=== PATIENT | female | born 1960 | race Caucasian/White ===

== ENCOUNTER 2018-06-20 12:28 | Emergency (ER) | payer BC ==
[2018-06-20 13:31] LABS: BASOPHILS % (AUTO) 0.3 %; EOSINOPHILS % (AUTO) 0.2 %; HGB - HEMOGLOBIN 13.2 g/dL (12.0-16.0); LYMPHOCYTES # (AUTO) 0.5 10^3/uL (1.5-3.5); LYMPHOCYTES % (AUTO) 4.5 %; MEAN CORPUSCULAR HEMOGLOBIN 35.4 pg (27.0-31.0); MEAN CORPUSCULAR HGB CONC 35.1 g/dL (32.0-36.0); MEAN CORPUSCULAR VOLUME 100.8 fL (81.0-99.0); MEAN PLATELET VOLUME 8.2 fL (7.9-10.8); MONOCYTES # (AUTO) 0.9 10^3/uL (0.0-1.0); MONOCYTES % (AUTO) 7.7 %; NEUTROPHILS # (AUTO) 10.3 10^3/uL (1.5-6.6); NEUTROPHILS % (AUTO) 87.3 %; PLT - PLATELET COUNT 164 10^3/uL (130-450); RED BLOOD COUNT 3.73 10^6/uL (4.20-5.40); RED CELL DISTRIBUTION WIDTH 13.2 % (12.0-15.0); WHITE BLOOD COUNT 11.8 x10^3/uL (4.8-10.8)
[2018-06-20 13:38] LABS: ALBUMIN 4.2 g/dL (3.2-5.5); ALBUMIN/GLOBULIN RATIO 1.3 (1.0-2.2); BILIRUBIN,TOTAL 0.8 mg/dL (0.2-1.0); CALCIUM 8.8 mg/dL (8.5-10.3); CREATININE 0.9 mg/dL (0.4-1.0); TOTAL PROTEIN 7.4 g/dL (6.7-8.2)
[2018-06-20] MEDS ORDERED: MORPHINE 10 MG/ML VIAL IVP STA (13:59)
[2018-06-20] MEDS ORDERED: ONDANSETRON 4 MG/2 ML VIAL IVP STA (13:59)
[2018-06-20] MEDS ORDERED: SODIUM CHLORIDE 0.9% 1,000 ML IV ONE (13:59)
--- NOTE | 2018-06-20 14:02 | ED Physician Documentation ---
PD HPI ABD PAIN - Stated complaint Stated Complaint: RECTAL BLEED/NAUSEA - Chief complaint Chief Complaint: Abd Pain - History obtained from History obtained from: Patient - History of Present Illness Timing - onset: Last night (Healthy 58-year-old woman who is never had a colonoscopy who developed lower abdominal pain with hematochezia and 2 episodes of nonbloody vomit last night. She has had a moderate to large amount of blood and clots. No history of GI bleeding or hemorrhoids. She has had chills but no measured fevers.) Review of Systems Ten Systems: 10 systems reviewed and negative Constitutional: reports: Chills. denies: Fever Cardiac: denies: Chest pain / pressure, Palpitations Respiratory: denies: Dyspnea, Cough GI: reports: Abdominal Pain, Nausea, Vomiting, Bloody / black stool PD PAST MEDICAL HISTORY - Past Medical History Past Medical History: No - Past Surgical History General: Appendectomy Ortho: Spine surgery /[employer]: Endometrial ablation HEENT: Tonsil/Adenoidectomy - Present Medications Home Medications: Ambulatory Orders Medication Instructions Recorded Confirmed Ciprofloxacin HCl [Cipro] 500 mg PO BID #14 tablet 06/20/18 Hydrocodone/Acetaminophen 1 - 2 each PO Q6H PRN #14 tablet 06/20/18 [Hydrocodon-Acetaminophen 5-325] Metronidazole [Flagyl] 500 mg PO TID #20 tablet 06/20/18 Multivit,Calc,Mins/Folic Acid 1 tab PO DAILY 06/20/18 06/20/18 [One-A-Day Proactive 65 Plus Tb] Promethazine [Phenergan] 25 mg PO Q6H PRN #10 tab 06/20/18 - Allergies Allergies/Adverse Reactions: Allergies Allergy/AdvReac Type Severity Reaction Status Date / Time No Known Drug Allergies Allergy Verified 06/20/18 12:37 - Social History Does the pt smoke?: No Smoking Status: Never smoker Does the pt drink ETOH?: Yes Does the pt have substance abuse?: No - Family History Family history: reports: Non contributory - Immunizations Immunizations are current?: Yes PD ED PE NORMAL - Vitals Vital signs reviewed: Yes - General General: Alert and oriented X 3, No acute distress - HEENT HEENT: PERRL, Pharynx benign - Neck Neck: Supple, no meningeal sign, No bony TTP - Cardiac Cardiac: RRR, No murmur - Respiratory Respiratory: No respiratory distress, Clear bilaterally - Abdomen Abdomen: Other (Mild left lower quadrant tenderness with hyperactive bowel tones and no surgical signs) - Rectal Rectal: Other (Kira Petty RN, No stool in the vault, no external hemorrhoids, she does have internal hemorrhoids without gross blood.) - Back Back: No CVA TTP, No spinal TTP - Derm Derm: Normal color, Warm and dry - Extremities Extremities: No edema, No calf tenderness / cord - Neuro Neuro: Alert and oriented X 3, Normal speech Results - Vitals Vitals: Vital Signs - 24 hr 06/20/18 12:32 Temperature 36.7 C Heart Rate 82 Respiratory 18 Rate Blood Pressure 135/79 H O2 Saturation 98 Oxygen O2 Source Room air - Labs Labs: Laboratory Tests 06/20/18 06/20/18 13:15 13:15 WBC 11.8 H RBC 3.73 L Hgb 13.2 Hct 37.6 MCV 100.8 H MCH 35.4 H MCHC 35.1 RDW 13.2 Plt Count 164 MPV 8.2 Neut # (Auto) 10.3 H Lymph # (Auto) 0.5 L [place] # (Auto) 0.9 Eos # (Auto) 0.0 Baso # (Auto) 0.0 Absolute Nucleated RBC 0.00 Nucleated RBC % 0.0 Sodium 134 L Potassium 3.7 Chloride 102 Carbon Dioxide 24 Anion Gap 8.0 BUN 22 H Creatinine 0.9 Estimated GFR (MDRD) 64 L Glucose 149 H Calcium 8.8 Total Bilirubin 0.8 AST 32 ALT 26 Alkaline Phosphatase 80 Total Protein 7.4 Albumin 4.2 Globulin 3.2 Albumin/Globulin Ratio 1.3 Lipase 24 - Rads (name of study) ct a/p Radiology: EMP read contemporaneously (Colitis starting at the splenic flexure down to the sigmoid colon.) PD MEDICAL DECISION MAKING - ED course ED course: 58-year-old woman presents with left lower abdominal pain and hematochezia likely colitis or diverticulitis. Colitis was proven on CT and she was treated with Cipro and Flagyl. Her labs were reassuring. - Sepsis Event Vital Signs: Vital Signs - 24 hr 06/20/18 12:32 Temperature 36.7 C Heart Rate 82 Respiratory 18 Rate Blood Pressure 135/79 H O2 Saturation 98 Oxygen O2 Source Room air Departure - Departure Disposition: 01 Home, Self Care Clinical Impression: Colitis, Hematochezia Condition: Good Record reviewed to determine appropriate education?: Yes Instructions: ED Hematochezia Stable Prescriptions: Ciprofloxacin HCl [Cipro] 500 mg PO BID #14 tablet Hydrocodone/Acetaminophen [Hydrocodon-Acetaminophen 5-325] 1 - 2 each PO Q6H PRN #14 tablet PRN Reason: pain Metronidazole [Flagyl] 500 mg PO TID #20 tablet Promethazine [Phenergan] 25 mg PO Q6H PRN #10 tab PRN Reason: Nausea / Vomiting Comments: As discussed, your CT shows colitis from the splenic flexure down to the sigmoid colon without vascular abnormalities. You had a white blood cell count of 11.8, hemoglobin 13.2, hematocrit 37.6, platelet count of 164. Her chemistries were basically normal with the exception of very mild hyponatremia at 134 and a BUN of 22. Your creatinine is normal at 0.9 and your electrolytes and liver function were normal. Your glucose was slightly high at 149, likely from illness. Follow-up with your primary care physician. As discussed she will need a colonoscopy in 6 weeks or so for follow-up.
[2018-06-20] MEDS ORDERED: IOPAMIDOL-300 100 ML VIAL ONE (14:04)
--- NOTE | 2018-06-20 15:03 | CT Report ---
Reason: IV only, LLQ pain and hematochezia Procedure Date: 06/20/2018 Accession Number: [id number] / [id number] Procedure: CT - Abdomen/Pelvis W/ CPT Code: FULL RESULT: EXAM: CT ABDOMEN AND PELVIS EXAM DATE: 06/20/2018 02:33 PM. CLINICAL HISTORY: IV only, LLQ pain and hematochezia. COMPARISONS: None. TECHNIQUE: Routine helical CT imaging was performed through the abdomen and pelvis. IV contrast: ISOVUE 300 100mL. Enteric contrast: No. Reconstructions: Coronal and sagittal. In accordance with CT protocol optimization, one or more of the following dose reduction techniques were utilized for this exam: automated exposure control, adjustment of mA and/or KV based on patient size, or use of iterative reconstructive technique. FINDINGS: Lung Bases: Unremarkable. Liver: Normal. No masses. Gallbladder/Bile Ducts: Unremarkable. Spleen: Normal. Pancreas: Normal. Adrenal Glands: Normal. Kidneys: Normal. No masses or hydronephrosis. Peritoneal Cavity/Bowel: No free air. No lymphadenopathy. No free fluid. There is thickening of the colon starting at the splenic flexure extending down through the sigmoid colon. This is greatest along the descending colon. Fat stranding is seen particularly around the descending colon. There is no evidence of colonic rupture. Only a few diverticula are seen in the sigmoid colon. Findings are most compatible with colitis. Appendix is not definitively visualized, but no pericecal inflammatory changes to suggest appendicitis. Pelvic Organs: Normal. The bladder and visualized pelvic organs are within normal limits. Vasculature: No aneurysms or other significant abnormality. Bones: There are degenerative changes within the spine, greatest at L4-L5. Other: None. IMPRESSION: Colitis starting at the splenic flexure extending into the sigmoid colon. This is greatest along the descending colon. No pneumoperitoneum. [facility]
[2018-06-20] MEDS ORDERED: CIPROFLOXACIN 250 MG TABLET PO STA (15:18)
[2018-06-20] MEDS ORDERED: metroNIDAZOLE 250 MG TABLET PO STA (15:18)
[2018-06-20 15:32] LABS: BILIRUBIN,URINE NEGATIVE (NEGATIVE); GLUCOSE, URINE (UA) NEGATIVE (NEGATIVE); KETONES,URINE (UA) NEGATIVE (NEGATIVE); LEUKOCYTE ESTERASE, URINE NEGATIVE (NEGATIVE); NITRITE,URINE NEGATIVE (NEGATIVE); OCCULT BLOOD,URINE NEGATIVE (NEGATIVE); PROTEIN,URINE NEGATIVE (NEGATIVE); UROBILINOGEN,URINE 0.2 (NORMAL) E.U./dL (NORMAL)
[2018-06-20 15:38] LABS: CLARITY,URINE CLEAR (CLEAR)
[2018-06-20 15:39] VITALS: BP 153/85
[2018-06-20] MEDS ORDERED: IOPAMIDOL-300 100 ML VIAL IVP ONE (16:43)
== END 2018-06-20 15:39 | disposition home or self-care (01) ==
LOC: ED 12:28
DX: K52.9 Noninfective gastroenteritis and colitis, unspecified (principal); K92.1 Melena
CPT/HCPCS: 36415; 74177; 80053; 81003; 83690; 85025; 96361; 96374; 99283; 99284; A9270; Q9967; 81001; 87086